=== PATIENT | male | born 1955 | race African-American/Black ===

== ENCOUNTER 2024-12-31 14:38 | Inpatient (IN) | payer MEDICARE, OTHER ==
[~2024-12-31] VITALS: Ht 175.3 cm; Wt 95.7 kg
[2024-12-31] MEDS ORDERED: LORA-258 PO (15:16)
[2024-12-31] MEDS ORDERED: LABE100T5 PO (15:16)
[2024-12-31] MEDS ORDERED: SENN8.6T19 PO (15:16)
[2024-12-31] MEDS ORDERED: SPIR25TA6 PO (15:16)
[2024-12-31] MEDS ORDERED: ACET325C7 PO (15:16)
[2024-12-31] MEDS ORDERED: CLON0.3P TD (15:16)
[2024-12-31] MEDS ORDERED: FAMO20TA8 PO (15:16)
[2024-12-31] MEDS ORDERED: FURO20TA4 PO (15:16)
[2024-12-31] MEDS ORDERED: CHOL500062 PO (15:16)
[2024-12-31] MEDS ORDERED: ALLO100T PO (15:16)
[2024-12-31] MEDS ORDERED: LACT10SO58 PO (15:16)
[2024-12-31] MEDS ORDERED: QUET50TA PO ×2 (15:16)
[2024-12-31] MEDS ORDERED: DIVA500T54 PO (15:16)
[2024-12-31] MEDS ORDERED: MAGN400O6 PO (15:16)
[2024-12-31] MEDS ORDERED: FOLI1TAB94 PO (15:16)
[2024-12-31] MEDS ORDERED: POLY17PO4 PO (15:16)
[2024-12-31] MEDS ORDERED: THIA100T74 PO (15:16)
[2024-12-31] MEDS ORDERED: NIFE-35 PO (15:16)
[2024-12-31] MEDS ORDERED: DOCU250C14 PO (15:16)
[2024-12-31] MEDS ORDERED: NA P133E RC (15:16)
[2024-12-31] MEDS ORDERED: LISI40TA13 PO (15:16)
[2024-12-31] MEDS ORDERED: BISA10SU61 RC (15:16)
[2024-12-31 15:24] LABS: PLATELET COUNT (AUTO) 209 K/uL (152-348); RED BLOOD CELL COUNT(AUTO) 4.30 MIL/uL (4.06-5.63); RED CELL DISTRIBUTION WIDTH 14.9 % (12.1-16.2); WHITE BLOOD COUNT (AUTO) 4.1 K/uL (3.6-10.2)
[2024-12-31 15:33] LABS: CREATININE 1.2 mg/dL (0.6-1.3); SODIUM SERUM 139 mmol/L (136-145); UREA NITROGEN, BLOOD 17 mg/dL (7-18)
[2024-12-31 15:37] LABS: ETHANOL < 3 MG/DL (0-10); VALPROIC ACID 70.0 ug/mL (50-100)
[2024-12-31 15:38] LABS: ASPARTATE AMINOTRANSFERASE 15 U/L (15-37); TOTAL PROTEIN, SERUM 7.6 g/dL (6.4-8.2)
[2024-12-31 16:04] LABS: IRON, SERUM 49 ug/dL (50-175)
[2024-12-31] MEDS ORDERED: ZOLPIDEM 5 MG TABLET PO PRN (22:45)
[2024-12-31] MEDS ORDERED: ACETAMINOPHEN 325 MG TABLET PO PRN (22:45)
[2024-12-31] MEDS ORDERED: MAGNESIUM HYDROXIDE 30 ML LIQUID UDC PO PRN (22:45)
[2024-12-31] MEDS ORDERED: MAG HYDROX/AL HYDROX/SIMETH 30 ML LIQUID UDC PO PRN (22:45)
[2024-12-31] MEDS ORDERED: QUETIAPINE FUMARATE 25 MG TABLET PO PRN (22:45)
[2025-01-01 04:42] VITALS: BP 151/88; TEMP 98.4; O2SAT 95
[2025-01-01 08:03] LABS: ASPARTATE AMINOTRANSFERASE 19.0 U/L (15-37); CREATININE 1.1 mg/dL (0.6-1.3); SODIUM SERUM 141.0 mmol/L (136-145); TOTAL PROTEIN, SERUM 6.9 g/dL (6.4-8.2); UREA NITROGEN, BLOOD 19.0 mg/dL (7-18)
[2025-01-01 08:08] VITALS: BP 115/71; TEMP 98; O2SAT 96
[2025-01-01] MEDS ORDERED: ACET-2154 PO (10:05)
[2025-01-01 15:35] VITALS: BP 116/71; TEMP 98; O2SAT 96
[2025-01-01] MEDS ORDERED: SENNOSIDES 1 TABLET PO PRN (17:30)
[2025-01-01] MEDS: OXCARBAZEPINE 150 MG TABLET PO SCH (17:37)
[2025-01-01] MEDS: FAMOTIDINE 20 MG TABLET PO SCH (17:42)
[2025-01-01] MEDS: LABETALOL HCL 100 MG TABLET PO SCH (17:48)
[2025-01-01] MEDS: NIFEdipine XL 30 MG TABSR PO SCH (17:48)
[2025-01-01 20:21] VITALS: BP 122/72; TEMP 97.9; O2SAT 96
[2025-01-01] MEDS: LACTULOSE 20 G/30 ML LIQUID UDC PO SCH (21:00)
[2025-01-01] MEDS: TRAZODONE 50 MG TABLET PO SCH (21:22)
[2025-01-02 08:16] VITALS: BP 120/72; TEMP 98.1; O2SAT 97
[2025-01-02] MEDS: MIRALAX 17 GM POWD.PACK PO SCH (09:05)
[2025-01-02] MEDS: THIAMINE HCL 100 MG TABLET PO SCH (09:06)
[2025-01-02] MEDS: CHOLECALCIFEROL 1,000 UNIT TABLET PO SCH (09:07)
[2025-01-02] MEDS: LISINOPRIL 20 MG TABLET PO SCH (09:08)
[2025-01-02] MEDS: FOLIC ACID 1 MG TABLET PO SCH (09:08)
[2025-01-02] MEDS: FUROSEMIDE 20 MG TABLET PO SCH (09:09)
[2025-01-02] MEDS: DOCUSATE SODIUM 250 MG CAPSULE PO SCH (09:09)
[2025-01-02] MEDS: ALLOPURINOL 100 MG TABLET PO SCH (09:11)
[2025-01-02] MEDS: SPIRONOLACTONE 25 MG TABLET PO SCH (09:11)
[2025-01-02] MEDS: ASPIRIN 81 MG TAB.CHEW PO SCH (10:00)
[2025-01-02 16:33] VITALS: BP 122/70; TEMP 98.1; O2SAT 97
[2025-01-02 19:57] VITALS: BP 118/73; TEMP 98.4; O2SAT 95
[2025-01-02] MEDS: EZETIMIBE 10 MG TABLET PO SCH (20:17)
[2025-01-02] MEDS: ATORVASTATIN 20 MG TABLET PO SCH (20:18)
[2025-01-02] MEDS: TRAZODONE 50 MG TABLET PO SCH (20:18)
[2025-01-03 08:14] VITALS: BP 117/74; TEMP 98.1; O2SAT 97
[2025-01-03] MEDS: DIVALPROEX 250 MG TABLET.DR PO SCH (12:10)
[2025-01-03 16:26] VITALS: BP 163/78; TEMP 98.1; O2SAT 97
[2025-01-03 20:01] VITALS: BP 119/70; TEMP 98.7; O2SAT 97
[2025-01-03] MEDS: LORAZEPAM 1 MG TABLET PO PRN (20:44)
[2025-01-04] MEDS: ZOLPIDEM 5 MG TABLET PO PRN (00:16)
[2025-01-04 08:20] VITALS: BP 133/77; TEMP 98.7; O2SAT 97
[2025-01-04] MEDS: CLONIDINE-TTS 3 PATCH TD SCH (08:31)
[2025-01-04 16:36] VITALS: BP 104/73; TEMP 98.7; O2SAT 97
[2025-01-04 19:46] VITALS: BP 107/68; TEMP 98.3; O2SAT 95
[2025-01-05 08:20] VITALS: BP 117/72; TEMP 98.4; O2SAT 96
[2025-01-05 16:00] VITALS: BP 119/78; TEMP 98.2; O2SAT 95
[2025-01-05 20:04] VITALS: BP 116/74; TEMP 98.3; O2SAT 95
[2025-01-06 08:11] VITALS: BP 127/77; TEMP 98; O2SAT 98
[2025-01-06 16:21] VITALS: BP 117/70; TEMP 98; O2SAT 98
[2025-01-06] MEDS ORDERED: DIVALPROEX 250 MG TABLET.DR PO SCH (17:00)
[2025-01-06] MEDS: DIVALPROEX 500 MG TABLET.DR PO SCH (17:15)
[2025-01-06] MEDS: ENSURE ENLIVE (VAN) 240 ML LIQUID PO SCH (17:20)
[2025-01-06 19:56] VITALS: BP 120/70; TEMP 97.9; O2SAT 98
[2025-01-07 08:54] VITALS: BP 121/58; TEMP 98.2; O2SAT 98
[2025-01-07 15:30] VITALS: BP 130/59; TEMP 98.2; O2SAT 96
[2025-01-07 20:00] VITALS: BP 110/68; TEMP 98; O2SAT 97
[2025-01-08 07:07] LABS: METHYLMALONIC ACID 134.0 nmol/L (0-378)
[2025-01-08 09:06] VITALS: BP_SYST 118; BP_DIAS 49; BP_DIAS 62; TEMP 98; O2SAT 96
[2025-01-08 16:18] VITALS: BP 108/63; TEMP 98; O2SAT 96
[2025-01-08 21:28] VITALS: BP 123/72; TEMP 98.7; O2SAT 95
[2025-01-09 08:57] VITALS: BP 125/54; TEMP 98; O2SAT 96
[2025-01-09 16:33] VITALS: BP 127/60; TEMP 98; O2SAT 96
[2025-01-09 19:56] VITALS: BP 162/88; TEMP 98.2; O2SAT 95
[2025-01-10 08:10] VITALS: BP 137/70; TEMP 98.2; O2SAT 95
[2025-01-10 16:28] VITALS: BP 122/61; TEMP 98.2; O2SAT 95
[2025-01-10 19:58] VITALS: BP 133/86; TEMP 98.1; O2SAT 96
[2025-01-11 08:44] VITALS: BP 114/59; TEMP 98; O2SAT 96
[2025-01-11 08:52] VITALS: BP 114/59
== END 2025-01-11 10:30 | DRG 885 ==
LOC: ER 14:38 → GPS 15:30
PROVIDERS: ADMIT Psychiatry & Neurology Psychiatry; ATTEND Nurse Practitioner Acute Care
DX: F29 Unspecified psychosis not due to a substance or known physiological condition (principal); I11.0 Hypertensive heart disease with heart failure; F03.93 Unspecified dementia, unspecified severity, with mood disturbance; E44.0 Moderate protein-calorie malnutrition; I69.251 Hemiplegia and hemiparesis following other nontraumatic intracranial hemorrhage affecting right dominant side; G93.40 Encephalopathy, unspecified; F03.94 Unspecified dementia, unspecified severity, with anxiety; E66.9 Obesity, unspecified; Z68.31 Body mass index [BMI] 31.0-31.9, adult; D50.9 Iron deficiency anemia, unspecified; E78.5 Hyperlipidemia, unspecified; I10 Essential (primary) hypertension; K21.9 Gastro-esophageal reflux disease without esophagitis; I69.220 Aphasia following other nontraumatic intracranial hemorrhage; Z91.199 Patient's noncompliance with other medical treatment and regimen due to unspecified reason; R73.03 Prediabetes; M10.9 Gout, unspecified; F32.A Depression, unspecified; R79.89 Other specified abnormal findings of blood chemistry; Z79.899 Other long term (current) drug therapy; F19.11 Other psychoactive substance abuse, in remission; I50.9 Heart failure, unspecified
CPT/HCPCS: 36415; 80164; 83550; 83735; 83921; 84443; 84484; 85025; 93005; A4606; A4663; G0480; J3490; J8499

== ENCOUNTER 2025-03-15 14:09 | Inpatient (IN) | payer MEDICARE, OTHER ==
[~2025-03-15] VITALS: Ht 170.2 cm; Wt 83.9 kg
[~2025-03-15 14:09] MED LIST: ACET-2154 PO; ALLO100T PO; BISA10SU61 RC; CHOL500062 PO; CLON0.3P TD; DOCU250C14 PO; FAMO20TA8 PO; FOLI1TAB94 PO; FURO20TA4 PO; LABE100T5 PO; LACT10SO58 PO; LISI40TA13 PO; MAGN400O6 PO; NA P133E RC; NIFE-35 PO; POLY17PO4 PO; SENN8.6T19 PO; SPIR25TA6 PO; THIA100T74 PO
[2025-03-15] MEDS ORDERED: OLANZAPINE 10 MG VIAL IM ONE (15:04)
[2025-03-15] MEDS: OLANZAPINE 10 MG VIAL IM ONE ×2 (15:10→18:10)
[2025-03-15 16:01] LABS: PLATELET COUNT (AUTO) 207 K/uL (152-348); RED BLOOD CELL COUNT(AUTO) 4.06 MIL/uL (4.06-5.63); RED CELL DISTRIBUTION WIDTH 15.3 % (12.1-16.2); WHITE BLOOD COUNT (AUTO) 4.3 K/uL (3.6-10.2)
[2025-03-15 16:08] LABS: CREATININE 0.7 mg/dL (0.6-1.3); SODIUM SERUM 140 mmol/L (136-145); UREA NITROGEN, BLOOD 14 mg/dL (7-18)
[2025-03-15 16:21] LABS: ASPARTATE AMINOTRANSFERASE 20 U/L (15-37); TOTAL PROTEIN, SERUM 7.2 g/dL (6.4-8.2)
[2025-03-15 19:35] LABS: *BILIRUBIN,URIN NEGATIVE (NEGATIVE); *BLOOD, URINE NEGATIVE (NEGATIVE); *CLARITY,URINE CLEAR (CLEAR); *COLOR,URINE LIGHT YELLOW (YELLOW); *KETONES,URINE 1+ (NEGATIVE); *PROTEIN,URINE NEGATIVE (NEGATIVE); *UROBILINOGEN,URINE 0.2 E.U./dl (NORMAL); LEUKOCYTE ESTERASE ,URINE NEGATIVE (NEGATIVE); NITRITE, URINE NEGATIVE (NEGATIVE); UGLUCOSE NEGATIVE (NEGATIVE)
[2025-03-15 19:43] LABS: *AMPHETAMINE, URINE NEGATIVE (NEGATIVE); *BARBITURATE, URINE NEGATIVE (NEGATIVE); *BENZODIAZEPINE, URINE NEGATIVE (NEGATIVE); *CANNABINOID, URINE NEGATIVE (NEGATIVE); *COCCAINE, URINE NEGATIVE (NEGATIVE); *OPIATE, URINE NEGATIVE (NEGATIVE); *PHENCYCLIDINE SCREEN,URINE NEGATIVE (NEGATIVE); FENTANYL, URINE NEGATIVE (NEGATIVE)
[2025-03-15 19:49] LABS: SQUAMOUS EPITHELIAL CELL,UR FEW /HPF (NONE SEEN)
[2025-03-15] MEDS ORDERED: SENNOSIDES 1 TABLET PO PRN (20:30)
[2025-03-15] MEDS ORDERED: MAGNESIUM HYDROXIDE 30 ML LIQUID UDC PO PRN ×2 (20:30→22:15)
[2025-03-15] MEDS ORDERED: BISACODYL 10 MG SUPP.RECT RC PRN (20:30)
[2025-03-15] MEDS ORDERED: FLEET ENEMA 133 ML BOTTLE RC PRN (20:30)
[2025-03-15 21:30] VITALS: BP 140/90
[2025-03-15] MEDS ORDERED: QUETIAPINE FUMARATE 25 MG TABLET PO PRN (22:15)
[2025-03-15] MEDS ORDERED: ACETAMINOPHEN 325 MG TABLET PO PRN (22:15)
[2025-03-15] MEDS: BLOOD SUGAR DIAGNOSTIC 1 EACH STRIP VI ONE (22:15)
[2025-03-15] MEDS ORDERED: MAG HYDROX/AL HYDROX/SIMETH 30 ML LIQUID UDC PO PRN (22:15)
[2025-03-15 22:20] VITALS: BP 165/83; TEMP 98.4; O2SAT 95
[2025-03-15] MEDS: QUETIAPINE FUMARATE 100 MG TABLET PO PRN (23:21)
[2025-03-16] MEDS: ZOLPIDEM 5 MG TABLET PO PRN ×2 (00:46→22:05)
[2025-03-16] MEDS ORDERED: CYAN100T44 PO (07:29)
[2025-03-16] MEDS ORDERED: ATOR40TA PO (07:29)
[2025-03-16] MEDS ORDERED: FERR-68 PO (07:29)
[2025-03-16] MEDS ORDERED: ASPI-495 PO (07:29)
[2025-03-16] MEDS ORDERED: DOCU100C36 PO (07:29)
[2025-03-16] MEDS ORDERED: LIDO1ADH71 TD (07:40)
[2025-03-16] MEDS ORDERED: MULT-1045 PO (07:40)
[2025-03-16 08:05] VITALS: BP 105/54; TEMP 97.2; O2SAT 72
[2025-03-16] MEDS ORDERED: DOCUSATE SODIUM 100 MG CAPSULE PO PRN (08:30)
[2025-03-16] MEDS ORDERED: CHOLECALCIFEROL 1,000 UNIT TABLET PO SCH ×2 (09:00)
[2025-03-16] MEDS ORDERED: FUROSEMIDE 20 MG TABLET PO SCH ×2 (09:00)
[2025-03-16] MEDS ORDERED: LISINOPRIL 20 MG TABLET PO SCH ×2 (09:00)
[2025-03-16] MEDS ORDERED: ALLOPURINOL 100 MG TABLET PO SCH ×2 (09:00)
[2025-03-16] MEDS ORDERED: FAMOTIDINE 20 MG TABLET PO SCH ×2 (09:00)
[2025-03-16] MEDS ORDERED: DOCUSATE SODIUM 250 MG CAPSULE PO SCH ×2 (09:00)
[2025-03-16] MEDS ORDERED: SPIRONOLACTONE 25 MG TABLET PO SCH ×2 (09:00)
[2025-03-16] MEDS: FOLIC ACID 1 MG TABLET PO SCH (10:53)
[2025-03-16] MEDS: LACTULOSE 20 G/30 ML LIQUID UDC PO SCH (10:53)
[2025-03-16] MEDS: THIAMINE HCL 100 MG TABLET PO SCH (10:54)
[2025-03-16] MEDS: MIRALAX 17 GM POWD.PACK PO SCH (10:54)
[2025-03-16] MEDS: REMEDY ESSENTIAL ZINC PASTE 113 GM TOP SCH (11:00)
[2025-03-16] MEDS: MULTIVITAMINS,THERAPEUTIC TABLET PO SCH (11:21)
[2025-03-16] MEDS: CYANOCOBALAMIN 100 MCG TABLET PO SCH (11:22)
[2025-03-16] MEDS: ASPIRIN EC 81 MG TABLET.DR PO SCH (11:22)
[2025-03-16] MEDS: FERROUS SULFATE 325 MG TABEC PO SCH (11:22)
[2025-03-16] MEDS: NIFEdipine XL 30 MG TABSR PO SCH (11:28)
[2025-03-16] MEDS: LABETALOL HCL 100 MG TABLET PO SCH ×2 (11:29→17:22)
[2025-03-16] MEDS: DIVALPROEX 125 MG TABLET.DR PO SCH (13:24)
[2025-03-16] MEDS: OLANZAPINE 2.5 MG TABLET PO SCH ×2 (13:25→21:22)
[2025-03-16 16:55] VITALS: BP 163/91; TEMP 97.9; O2SAT 95
[2025-03-16 19:41] VITALS: BP 145/88; TEMP 97.9; O2SAT 96
[2025-03-16] MEDS: ATORVASTATIN 40 MG TABLET PO SCH (21:21)
[2025-03-16] MEDS: OLANZAPINE ZYDIS 5 MG TAB.RAPDIS PO PRN (22:05)
[2025-03-16] MEDS: ACETAMINOPHEN 325 MG TABLET PO PRN (23:49)
[2025-03-17 08:18] VITALS: BP 157/94; TEMP 97.8; O2SAT 96
[2025-03-17] MEDS: NIFEdipine XL 30 MG TABSR PO SCH (08:51)
[2025-03-17] MEDS: DIVALPROEX 250 MG TABLET.DR PO SCH (13:42)
[2025-03-17] MEDS: OLANZAPINE 2.5 MG TABLET PO SCH (13:42)
[2025-03-17] MEDS ORDERED: DIVALPROEX 125 MG TABLET.DR PO SCH (14:00)
[2025-03-17 15:11] VITALS: BP 114/78; TEMP 98; O2SAT 96
[2025-03-17 20:03] VITALS: BP 139/94; TEMP 98.1; O2SAT 96
[2025-03-18] MEDS: OLANZAPINE 10 MG VIAL IM ONE (02:25)
[2025-03-18 07:50] VITALS: BP 159/98; TEMP 98; O2SAT 96
[2025-03-18] MEDS ORDERED: OLANZAPINE 2.5 MG TABLET PO SCH (09:00)
[2025-03-18] MEDS: OLANZAPINE 5 MG TABLET PO SCH (09:30)
[2025-03-18 15:13] VITALS: BP 142/69; TEMP 98; O2SAT 98
[2025-03-18] MEDS: CLONAZEPAM 0.5 MG TABLET PO SCH (18:17)
[2025-03-18 20:00] VITALS: BP 142/84; TEMP 98.2; O2SAT 96
[2025-03-19 07:41] VITALS: BP 110/61; TEMP 98; O2SAT 96
[2025-03-19 15:26] VITALS: BP 119/66; TEMP 98.2; O2SAT 96
[2025-03-19 20:00] VITALS: BP 110/82; TEMP 98; O2SAT 97
[2025-03-19] MEDS: DIVALPROEX 500 MG TABLET.DR PO SCH (20:51)
[2025-03-20 08:45] VITALS: BP 164/91; TEMP 98.2; O2SAT 96
[2025-03-20 10:00] VITALS: BP 122/66; O2SAT 98
[2025-03-20 16:14] VITALS: BP 141/85; TEMP 98.2; O2SAT 96
[2025-03-20 19:52] VITALS: BP 146/82; TEMP 98.1; O2SAT 96
[2025-03-21 08:57] VITALS: BP 150/91; TEMP 98.2; O2SAT 96
[2025-03-21] MEDS: CLONAZEPAM 0.5 MG TABLET PO SCH (12:33)
[2025-03-21 16:23] VITALS: BP 115/61; TEMP 98.5; O2SAT 97
[2025-03-21 20:03] VITALS: BP 152/95; TEMP 98.1; O2SAT 98
[2025-03-21] MEDS: TRAZODONE 50 MG TABLET PO SCH (21:07)
[2025-03-22 08:00] VITALS: BP 133/78; TEMP 97.8; O2SAT 97
[2025-03-22 12:00] VITALS: BP 126/65; TEMP 97.6; O2SAT 97
[2025-03-22 16:00] VITALS: BP 129/78; TEMP 97.3; O2SAT 97
[2025-03-22 19:54] VITALS: BP 135/95; TEMP 98.1; O2SAT 94
[2025-03-23] MEDS: BENZTROPINE MESYLATE 0.5 MG TABLET PO SCH (08:16)
[2025-03-23] MEDS: DIVALPROEX 500 MG TABLET.DR PO SCH (08:16)
[2025-03-23 09:39] VITALS: BP 130/97; TEMP 97.3; O2SAT 97
[2025-03-23] MEDS: OLANZAPINE 5 MG TABLET PO SCH ×2 (13:06→20:56)
[2025-03-23 18:20] VITALS: BP 153/87; TEMP 97.6; O2SAT 96
[2025-03-23 20:00] VITALS: BP 143/96; TEMP 97.4; O2SAT 95
[2025-03-24 10:45] VITALS: BP 168/88; TEMP 98.2; O2SAT 98
[2025-03-24 15:12] VITALS: BP 124/88; TEMP 98; O2SAT 96
[2025-03-24 20:00] VITALS: BP 131/71; TEMP 97.1; O2SAT 94
[2025-03-25 09:30] VITALS: BP 145/93; TEMP 98.2; O2SAT 94
[2025-03-25 15:12] VITALS: BP 109/73; TEMP 98; O2SAT 100
[2025-03-25 19:58] VITALS: BP 147/94; TEMP 98.1; O2SAT 99
[2025-03-26 08:10] VITALS: BP 166/89; TEMP 98.2; O2SAT 96
[2025-03-26 09:10] VITALS: BP 130/85; TEMP 98.2; O2SAT 98
[2025-03-26 13:11] VITALS: TEMP 98.2
== END 2025-03-26 14:00 | DRG 885 ==
LOC: ER 14:09 → GPS 21:37 → GPSOV3 03-21 23:36 → GPS 03-22 18:22
PROVIDERS: ADMIT Psychiatry & Neurology Psychiatry; ATTEND Student in an Organized Health Care Education/Training Program
DX: F29 Unspecified psychosis not due to a substance or known physiological condition (principal); I69.351 Hemiplegia and hemiparesis following cerebral infarction affecting right dominant side; F03.911 Unspecified dementia, unspecified severity, with agitation; F03.93 Unspecified dementia, unspecified severity, with mood disturbance; F03.94 Unspecified dementia, unspecified severity, with anxiety; G91.9 Hydrocephalus, unspecified; I69.320 Aphasia following cerebral infarction; I69.391 Dysphagia following cerebral infarction; R13.10 Dysphagia, unspecified; E78.5 Hyperlipidemia, unspecified; I10 Essential (primary) hypertension; M10.9 Gout, unspecified; R73.03 Prediabetes; Z79.899 Other long term (current) drug therapy
CPT/HCPCS: 36415; 80164; 84443; 85025; A4606; A4663; C1758; J2358; J3490; J8499